=== PATIENT | female | born 1945 | race Caucasian/White ===

== ENCOUNTER 2018-03-10 12:01 | Outpatient (RCR) | payer SELFPAY ==
--- NOTE | 2018-03-12 13:42 | Consultation ---
History of Present Illness General Date patient seen: Mar 10, 2018 Chief Complaint: broussard face and chest Referring physician: Viktor Reason for Consultation: Evaluation of broussard Present Illness HPI 73 y/o female who had a cosmetic rf treatment and referred for hbo2 Patient History Healthcare decision maker Resuscitation status Advanced Directive on File RON CEBALLOS M.D. Mar 12, 2018 13:42
--- NOTE | 2018-03-21 10:13 | General Progress Note ---
Assessment/Plan Assessment/Plan Cont'd HBO2 3 more sessions Subjective Date patient seen: Mar 20, 2018 ROS Limited/Unobtainable: No Subjective still has some subjective swelling face and decolletage but improved Objective Objective swelling of face diminished vs last tx - erythema still present. still w malar festoons but less prominent RON CEBALLOS M.D. Mar 21, 2018 10:13
--- NOTE | 2018-03-24 15:19 | General Progress Note ---
Assessment/Plan Assessment/Plan Cont'd HBO2 3 more sessions Subjective Date patient seen: Mar 21, 2018 ROS Limited/Unobtainable: No HEENT: Reports: no symptoms, eye pain, blurred vision, tearing, double vision, ear pain, ear discharge, nose pain, nose congestion, throat pain, throat swelling, mouth pain, mouth swelling, other All Systems: reviewed and negative except above Subjective malar crescent edema improved Objective Objective swelling of face diminished vs last tx - erythema still present. still w malar festoons but less prominent RON CEBALLOS M.D. Mar 24, 2018 15:19
--- NOTE | 2018-03-24 21:18 | General Progress Note ---
Assessment/Plan Assessment/Plan Cont'd HBO2 1-2 more sessions Subjective Date patient seen: Mar 25, 2018 ROS Limited/Unobtainable: No All Systems: reviewed and negative except above Subjective malar crescent edema improved Objective EENT: PERRL/EOMI Objective swelling of face diminished vs last tx - erythema dramatically reduced. still w malar festoons but less prominent RON CEBALLOS M.D. Mar 24, 2018 21:18
--- NOTE | 2018-03-25 21:34 | Consultation ---
History of Present Illness General Referring physician: Viktor Reason for Consultation: Evaluation of broussard Present Illness HPI 73 yo female presents for HBO2 tx s/p full face rf treatment with Ashanti [facility] Patient History Healthcare decision maker Resuscitation status Advanced Directive on File Physical Exam Objective Narrative slight erythema and swelling scott malar area Assessment/Plan Assessment/Plan For HBO2 tx three more sessions RON CEBALLOS M.D. Mar 25, 2018 21:34
--- NOTE | 2018-03-25 21:36 | Consultation ---
History of Present Illness General Date patient seen: Mar 25, 2018 Chief Complaint: swelling face Referring physician: Viktor Reason for Consultation: Evaluation of broussard Patient History Healthcare decision maker Resuscitation status Advanced Directive on File Physical Exam Objective Narrative s/p full face marleni viva rf w swelling Assessment/Plan Assessment/Plan For HBO2 tx three more sessions RON CEBALLOS M.D. Mar 25, 2018 21:36
== END 2018-03-28 | disposition home or self-care (01) ==
LOC: WCC 12:01
DX: T21.01XS Burn of unspecified degree of chest wall, sequela (principal); X58.XXXS Exposure to other specified factors, sequela
CPT/HCPCS: G0277; G0463